=== PATIENT | male | born 1950 | race Caucasian/White ===

== ENCOUNTER 2017-12-11 13:29 | Inpatient (IN) | payer MEDICARE ==
[~2017-12-11] VITALS: Ht 175.3 cm; Wt 82.9 kg
[~2017-12-11 13:29] MED LIST: DEXAMETHASONE 4 MG/ML, 1ML ONE; KETOROLAC 30 MG/1 ML ONE; ONDANSETRON 2MG/ML, 2ML ONE; PROPOFOL 10 MG/ML, 20ML ONE; ROCURONIUM 10MG/ML,5ML ONE; SUCCINYLCHOLINE 20 MG/ML, 10ML ONE
[2017-12-11] MEDS ORDERED: DIPH,PERTUSS(ACELL),TET VAC/PF 0.5 ML IM-VACC ONE ×2 (13:53→14:00)
[2017-12-11] MEDS ORDERED: LIDOCAINE-MPF 1%, 5ML ONE (13:53)
[2017-12-11] MEDS ORDERED: SODIUM CHLORIDE FLUSH 10ML SYR IVF ONE (14:00)
[2017-12-11] MEDS ORDERED: AMPICILLIN/SULBACTAM 3 GM in SODIUM CHLORIDE 0.9% 100 ML IVPB ONE (14:00)
[2017-12-11] MEDS ORDERED: LIDOCAINE-MPF 1%, 5ML INFIL ONE (14:00)
[2017-12-11 14:19] LABS: BASOPHILS # (AUTO) 0.03 x10^3/uL (0-0.1); BASOPHILS % (AUTO) 1 % (0-1); EOSINOPHILS % (AUTO) 4 % (1-7); LYMPHOCYTES # (AUTO) 1.55 x10^3/uL (1-3.4); LYMPHOCYTES % (AUTO) 28 % (22-44); MD NO; MEAN CORPUSCULAR HEMOGLOBIN 29.9 pg (27.5-34.5); MEAN CORPUSCULAR HGB CONC 33.3 g/dL (33.2-36.2); MEAN CORPUSCULAR VOLUME 89.7 fL (81-97); MONOCYTES # (AUTO) 0.77 x10^3/uL (0.2-0.8); MONOCYTES % (AUTO) 14 % (2-9); NEUTROPHILS # (AUTO) 3.01 x10^3/uL (1.8-6.8); NEUTROPHILS % (AUTO) 54 % (42-75); PLATELET COUNT 183 x10^3/uL (130-400); RED BLOOD COUNT 5.43 x10^6/uL (4.38-5.82); RED CELL DISTRIBUTION WIDTH 13.9 % (9.4-14.8)
[2017-12-11 14:20] LABS: ALBUMIN 4.1 g/dL (3.4-5.0); ANION GAP 7 mmol/L (5-15); CALCIUM 8.5 mg/dL (8.5-10.1); CHLORIDE 108 mmol/L (98-107); CREATININE 1.28 mg/dL (0.7-1.3)
[2017-12-11] MEDS ORDERED: MORPHINE SULFATE 4 MG/ML, 1ML IVPush PRN (16:00)
[2017-12-11] MEDS ORDERED: ONDANSETRON 2MG/ML, 2ML IVPush PRN (16:00)
[2017-12-11 16:20] VITALS: BP 155/88
[2017-12-11 16:49] LABS: HCT (SEDRATE) 48.7 % (39.2-51.8)
[2017-12-11] MEDS ORDERED: MIDAZOLAM 1 MG/ML, 2ML ONE (16:59)
[2017-12-11] MEDS ORDERED: FENTANYL PF 100 MCG/2ML ONE ×2 (16:59→18:17)
[2017-12-11] MEDS ORDERED: LIDOCAINE JELLY 2%, 30GM ONE (16:59)
[2017-12-11] MEDS ORDERED: BUPIVACAINE/PF 0.5% ONE (17:17)
[2017-12-11] MEDS ORDERED: BUPIVACAINE/PF 0.5% INFIL ONE (17:56)
[2017-12-11] MEDS ORDERED: ACETAMINOPHEN 325 MG TABLET PO PRN (18:00)
[2017-12-11] MEDS ORDERED: LABETALOL 5MG/ML, 20ML IV PRN (18:00)
[2017-12-11] MEDS ORDERED: MEPERIDINE/PF 25MG/0.5ML IVPush PRN (18:00)
[2017-12-11] MEDS ORDERED: MIDAZOLAM 1 MG/ML, 2ML IV PRN (18:00)
[2017-12-11] MEDS ORDERED: HYDROmorphone 1 MG/ML, 1ML IV PRN (18:00)
[2017-12-11] MEDS ORDERED: ONDANSETRON 2MG/ML, 2ML IV PRN (18:00)
[2017-12-11] MEDS ORDERED: SCOPOLAMINE PATCH, 1.5MG PATCH.TD72 TD PRN (18:00)
[2017-12-11] MEDS ORDERED: ALBUTEROL/IPRATROPIUM 2.5MG/0.5MG, 3 ML NPPB PRN (18:00)
[2017-12-11] MEDS ORDERED: FENTANYL PF 100 MCG/2ML IV PRN (18:00)
[2017-12-11] MEDS ORDERED: OXYcodone 5 MG/5 ML ORAL.SOL UDC PO PRN (18:00)
[2017-12-11] MEDS ORDERED: PROMETHAZINE 25 MG SUPP PR PRN (18:00)
[2017-12-11] MEDS ORDERED: NEOSPORIN OINT, 15GM ONE (18:05)
[2017-12-11] MEDS ORDERED: ACETAMINOPHEN 650 MG/20.3 ML UDC ONE (18:17)
[2017-12-11] MEDS ORDERED: OXYcodone 5 MG/5 ML ORAL.SOL UDC ONE (18:17)
[2017-12-11 20:21] VITALS: BP 137/79
[2017-12-11] MEDS: AMPICILLIN/SULBACTAM 3 GM in SODIUM CHLORIDE 0.9% 100 ML IV SCH (20:37)
[2017-12-12 00:35] VITALS: BP 116/72
[2017-12-12] MEDS: AMPICILLIN/SULBACTAM 3 GM in SODIUM CHLORIDE 0.9% 100 ML IV SCH (04:07)
[2017-12-12 08:38] VITALS: BP 151/93
[2017-12-12] MEDS ORDERED: OXYC-302 PO (09:00)
[2017-12-12] MEDS ORDERED: AMOX1TAB64 PO (09:01)
== END 2017-12-12 10:15 | disposition home or self-care (01) | DRG 581 ==
LOC: ED 15:15 → EDIP 15:16 → ED 15:32 → 4NOR 16:29
PROVIDERS: ADMIT Hospitalist; ATTEND Internal Medicine
PROC: 01B50ZZ Excision of Median Nerve, Open Approach (ICD-10-PCS; 2017-12-11)
PROC: 0X6L0Z3 Detachment at Right Thumb, Low, Open Approach (ICD-10-PCS; principal; 2017-12-11 17:00)
DX: S61.051A Open bite of right thumb without damage to nail, initial encounter (principal); W54.0XXA Bitten by dog, initial encounter; Y93.89 Activity, other specified; Y92.89 Other specified places as the place of occurrence of the external cause; Y99.8 Other external cause status
CPT/HCPCS: 36415; 80048; 82040; 85025; 85651; 86140; 90471; 90715; G0378; J0295; J1100; J1885; J2250; J2405; J2704; J3010; J3490; J0330